=== PATIENT | female | born 1960 | race Caucasian/White ===

== ENCOUNTER 2022-05-03 08:16 | Emergency (ER) | payer OTHER, SELFPAY ==
[2022-05-03 08:25] VITALS: BP 148/79; PULSE 65; RESP 16; TEMP 36.3; O2SAT 100
--- NOTE | 2022-05-03 08:26 | ED.GENADULT ---
HPI - General Adult General Chief complaint: Upper Respiratory Infection Stated complaint: Dizziness Time Seen by Provider: 05/03/22 08:41 Source: patient Mode of arrival: ambulatory Limitations: no limitations History of Present Illness HPI narrative: 61-year-old female presents with concern for dizziness. Reports sudden onset of dizziness overnight. Reports it feels like there are pins and needles poking her head. She denies a room spinning feeling. She reports feeling like she has been ?drawn 5 days?. She denies any substance intoxication. She reports she has had a headache throughout the weekend that has abdomen flowed. She denies thunderclap headache. She denies weakness in any extremity. She drove herself to work today, her boss drove her here. She denies runny nose, stuffy nose, ear fullness, earache. She denies chest pain or shortness of breath MD complaint: Dizziness Related Data Home Medications Medication Instructions Recorded Confirmed No Home Medications 05/03/22 05/03/22 Allergies Allergy/AdvReac Type Severity Reaction Status Date / Time codeine AdvReac Intermediate Gastrointestinal Verified 05/03/22 08:34 Upset Review of Systems Review of Systems: CONSTITUTIONAL: Denies malaise, chills, sweats, or fever. EYES: Denies visual changes ENT: Denies rhinorrhea, congestion, sinus pain, otalgia or sore throat. CARDIOVASCULAR: Denies chest pain, palpitations, or edema. RESPIRATORY: Denies cough or dyspnea. GASTROINTESTINAL: Denies abdominal pain, nausea, vomiting MUSCULOSKELETAL: Reports chronic left shoulder pain NEUROLOGIC: Denies numbness, weakness. Reports headache and dizziness All systems reviewed & are unremarkable except as noted in HPI and below FORMERLY [facility], 1928[facility]1983 Comments At time of signature, agree with nursing past medical, surgical, social and family history. There is no relevant family history pertinent to the presenting complaint Exam Narrative: GENERAL: Nontoxic-appearing and in no acute distress. HEAD: Normocephalic, atraumatic. EYES: PERRLA, sclera clear, and EOMI. No nystagmus. ENT: Nares clear, turbinates pink, no rhinorrhea or epistaxis. Mucous membranes moist. TM pearly aj with dull light reflex bilaterally; no tragal tenderness. Oropharynx without erythema or lesions. Tonsils not enlarged and without exudate. NECK: Supple. No lymphadenopathy. No jugular venous distension, thyromegaly, or carotid bruits. Carotids were easily palpable bilaterally. CHEST: No respiratory distress. Clear to auscultation. No bony deformities, no asymmetry. Speaks in full sentences. HEART: Regular rate and rhythm. No murmur heard. Normal peripheral pulses. EXTREMITIES: Normal range of motion. No edema. Normal strength and sensation. SKIN: Warm, dry, no visible rash. NEURO: Alert and oriented x3. No focal deficits. Cranial nerves II through XII grossly intact. Artem-Hallpike test negative bilaterally PSYCH: Normal mood and affect Course Course Emergency Course: Patient is aware of, understands and agrees to be transferred to the emergency room. Patient agrees to proceed directly to the emergency department. Portions of this record may have been created with voice recognition software Level of Care: Express Care Visit Vital Signs Vital signs: Reviewed. Transfer Transfered to: Other ([facility]) Transportation: Other (Private vehicle) Transfer rationale: Dizziness Accepting physician: Franky Medical Decision Making MDM Narrative Medical decision making narrative: Exam findings and HPI warrant further evaluation emergency department. Critical Care Time Critical Care Time Critical Care Time: No Discharge Plan Discharge Clinical Impression: Dizziness Patient Disposition: Acute Care Hospital Condition: Stable Prescriptions: No Action No Home Medications Follow-up/Referrals: Antwon,Santiago Gant MD [Primary Care Provider] - Time of Dispositio
== END 2022-05-03 08:55 | disposition home or self-care (01) ==
PROVIDERS: Emergency Provider Nurse Practitioner; PCP Pediatrics
DX: R42 Dizziness and giddiness (principal)
CPT/HCPCS: 99202; G0463

== ENCOUNTER 2024-06-16 16:12 | Emergency (ER) | payer OTHER, SELFPAY ==
--- NOTE | 2024-06-16 16:13 | ED_ITS ---
HPI - Female Genitourinary General Chief complaint: Urogenital-Female Stated complaint: uti Time Seen by Provider: 06/16/24 16:13 Source: patient Mode of arrival: ambulatory Limitations: no limitations History of Present Illness HPI Narrative: Silvana is a 63-year-old female patient presenting to the clinic today with complaints of possible UTI. She reports she has had symptoms for 1 day. He reports burning, frequency, and urgency with urination. Also reporting some lower abdominal discomfort and low back pain. Denies any fevers, chills, body aches. Last bowel movement was approximately 3 days ago. Patient states that this is normal for her. Related Data Home Medications ?Medication ?Instructions ?Recorded ?Confirmed ?Last Taken ?Type celecoxib 200 mg capsule mg 06/16/24 Unknown History omeprazole 40 mg capsule,delayed mg 06/16/24 Unknown History release Allergies Allergy/AdvReac Type Severity Reaction Status Date / Time codeine AdvReac Intermediate Gastrointestinal Verified 06/16/24 16:28 Upset Review of Systems Review of Systems: Pertinent positives per HPI. Patient denies any fever, chills, rash, headache, visual changes, dizziness, cough, runny nose, sore throat, shortness of breath, chest pain, palpitations, nausea, vomiting, diarrhea, constipation PMFSH Comments At the time of my signature, I reviewed and agree with the nursing past medical, surgical, social, and family history. There is no relevant family history pertinent to the patient complaint. Exam Narrative: General: Well-developed, well nourished, in no apparent distress. Head: Normocephalic, atraumatic. Cardio: Regular rate and rhythm, s1 and s2 normal, no murmur appreciated. Resp: Clear to auscultation bilaterally, no rhonchi, rales, wheezing or rubs. Abdomen: Soft, pliable, bowel sounds present in all quadrants, mild suprapubic tender to palpation, no organomegly, no CVAT tenderness. Course Course Emergency Course: Portions of this record may have been created with voice recognition software. Level of Care: Express Care Visit Vital Signs Vital signs: Vital Signs Temperature 36.4 C L 06/16/24 16:21 Pulse Rate 61 06/16/24 16:21 Respiratory Rate 18 06/16/24 16:21 Blood Pressure 140/75 06/16/24 16:21 Pulse Oximetry 100 06/16/24 16:21 Oxygen Delivery Room Air 06/16/24 16:21 Temperature 36.4 C L 06/16/24 16:21 Pulse Rate 61 06/16/24 16:21 Respiratory Rate 18 06/16/24 16:21 Blood Pressure 140/75 06/16/24 16:21 Pulse Oximetry 100 06/16/24 16:21 Oxygen Delivery Room Air 06/16/24 16:21 Vital signs reviewed MDM - Female Genitourinary MDM Narrative Medical decision making narrative: At the time of visit patient is resting comfortably on the exam table. Patient appears to be nontoxic. Labs: Urinalysis shows trace of leukocytes. We will send urine for culture. Plan: Patient has UTI symptoms. Will send in prescription for 3 day course of Bactrim. Will send urine for culture. Supportive measures were discussed with the patient and they voiced understanding discharge instructions and agrees to treatment plan. Return precautions reviewed Differential Diagnosis Differential diagnosis: Likely urinary tract infection and cystitis Discharge Plan Discharge Clinical Impression: Urinary tract infection Qualifiers: Urinary tract infection type: acute cystitis Hematuria presence: without hematuria Qualified Code(s): N30.00 - Acute cystitis without hematuria Patient Disposition: Home Condition: Stable Instructions: Antibiotic Form, Urinary Tract Infection in Older Adults (ED) Additional Instructions: UA shows trace of leukocytes. No blood or protein. Will place on 3 day course of Bactrim May take azo for symptoms Increase fiber in your diet Increase fluids and stay well hydrated Wipe front to back. May use wet wipes. Avoid tub baths If sexually active- pee before and after intercourse. Wear cotton panties Avoid tight clothing up against the genitals Follow up with your PCP in 1 week if symptoms persist. Patient Language: Indonesian Prescriptions: New sulfamethoxazole-trimethoprim [Bactrim DS] 800-160 mg tablet 1 tablet PO Q12H 3 Days Qty: 6 0RF No Action celecoxib 200 mg capsule omeprazole 40 mg capsule,delayed release(/EC) Follow-up/Referrals: Wes Kapoor ARRT [Primary Care Provider] - Time of Disposition: 16:40 Quality NIHSS Nursing Documentation ED NIHSS nursing documentation: reviewed/agree
--- OUTSIDE RECORDS SUMMARY | 2024-06-16 16:16 | XMS_ITS | Clinical Summary ---
Author Organization [facility] Address [address] [place] [address] Care Team Providers Care Preliminary School Psychologist Name Role Phone Santiago Kapoor MD Primary Care Provide r Allergies Active Allergy Reactions Criticality Noted Date Comments Amitriptyline Fatigue Low 02/28/2018 Codeine Chest pressure Medium 07/04/2017 Gabapentin Other (see comment) Low 11/29/2023 Confusion Naproxen Nausea Only Low 06/08/2017 Medications celecoxib (CELEBREX) 200 MG capsuleIndicatio ns:Pain in both hands Take 1 capsule (200 mg total) by mouth 2 (two) times daily. 60 capsule 5 11/02/2023 Active omeprazole (PRILOSEC) 40 MG capsuleIndicatio ns:Gastroesophag eal reflux disease without esophagitis Take 1 capsule (40 mg total) by mouth daily. 30 capsule 5 11/02/2023 Active Active Problems Problem Noted Date Diagnosed Date Cervical radiculopathy 11/21/2022 Pain in both hands 11/21/2022 Chronic midline low back pain with left-sided sc iatica 11/21/2022 Mammogram declined 08/30/2022 Immunization counseling 08/30/2022 Arthritis of both hands 02/18/2021 Chronic pain of both shoulders 02/18/2021 Pure hypercholesterolemia 11/26/2019 History of colon polyps 11/26/2019 Diverticulosis 11/26/2019 IBS (irritable bowel syndrome) 08/13/2017 Hyperkeratosis 11/24/2015 Deformity of metatarsal 01/13/2015 Hypertrophic condition of skin 01/13/2015 Foot callus 01/06/2015 Myalgia and myositis 07/02/2014 Overview (02/26/2018): Myalgia and myositis, unspecified Cervicalgia 06/20/2013 Overview (02/26/2018): Cervicalgia Neuralgia, neuritis or radiculitis 06/20/2013 Overview (02/26/2018): Neuralgia, neuritis, and radiculitis, unspecified Pain in joint, hand 06/20/2013 Overview (02/26/2018): Pain in joint involving hand Sciatica 06/20/2013 Overview (02/26/2018): Sciatia Resolved Problems Problem Noted Date Diagnosed Date Resolved Date Gastritis 08/13/2017 08/30/2022 Plantar wart 12/18/2014 08/30/2022 Overview (02/26/2018): Plantar wart Calculus of gallbladder and bile duct with acute on chronic cholecystitis without obstruction 03/13/2012 08/30/2022 Chest pain 03/11/2012 08/30/2022 Overview (02/26/2018): Unspecified chest pain Encounters Date Type Department Care Team Description 04/18/2024 Scan HEALTH INFO [facility] Scanned, [facility] 04/18/2024 Orders Only [facility] [address] [place] [id number] Santiago Kapoor MD from Last 3 Months Immunizations Immunization Administration Dates Next Due Fluzone 6 Months+ Quad (0.5 mL Prefilled Syringe) 11/19/2019 Influenza (Generic) 11/10/2017,11/08/2015,2014 Influenza Adult (Generic) 11/20/2014 Pneumococcal (Prevnar 13) 11/19/2019 Tdap (Adacel) 05/29/2021 Tdap (Generic) 10/29/2007 Tdap (Historical Only-select from magnify glass) 11/19/2019 Family History Medical History Relation Comments Hypertension Father Hypertension Mother Relation Status Comments Father Alive Mother Social History Tobacco Use Types Packs/Day Years Used Date Smoking Tobacco: Former Cigarettes Smokeless Tobacco: Never Tobacco Cessation:Counseling Given: Not Answered Alcohol Use Standard Drinks/Week Comments Yes 0 (1 standard drink = 0.6 oz pur e alcohol) on occasion AUDIT-C Answer Date Recorded Frequency of Alcohol Consumption 4 or more times a week 03/28/2018 Average Number of Drinks Not on file 019 Frequency of Binge Drinking Not on file 03/09 PHQ-2 Answer Date Recorded Patient Health Questionnaire-2 Score 0 11/22/2023 Comments No Sex and Gender Information Value Date Recorded Sex Assigned at Female 09/27/2022 4:07 PM CDT Legal Sex Female 4:47 PM CDT Gender Identity Female 09/27/2022 4:07 PM CDT Sexual Orientation Straight 09/27/2022 4: 07 PM CDT Last Filed Vital Signs Vital Sign Reading Time Taken Comments Blood Pressure 134/72 03/10/2024 1:05 PM ASSOCIATE DIRECTOR OF DEVELOPMENT Pulse 66 03/10/2024 12:51 PM ASSOCIATE DIRECTOR OF DEVELOPMENT Temperature 36.6 C (97.8 F) 03/10/2024 12:51 PM ASSOCIATE DIRECTOR OF DEVELOPMENT Respiratory Rate 18 03/10/2024 12:51 PM ASSOCIATE DIRECTOR OF DEVELOPMENT Oxygen Saturation 98% 03/10/2024 12:51 PM ASSOCIATE DIRECTOR OF DEVELOPMENT Inhaled Oxygen Concentration - - Weight 83.2 kg (183 lb 8 oz) 03/10/2024 12:51 PM ASSOCIATE DIRECTOR OF DEVELOPMENT Height 165.1 cm (5' 5 ) 03/10/2024 12:51 PM ASSOCIATE DIRECTOR OF DEVELOPMENT Body Mass Index 30.54 03/10/2024 12:51 PM ASSOCIATE DIRECTOR OF DEVELOPMENT Plan of Treatment Health Maintenance Due Date Last Done Comments Cervical Cancer Screening Pa p Smear (Age 30 to 64) Every 3 Years 1962 Hepatitis C 1980 Zoster Vaccines (1 of 2) 2012 Mammogram Screening 03/01/2020 03/01/2018 Pneumococcal Vaccine: 50+ Years (2 of 2 - PPSV23) 11/18/2020 11/19/2019 Cervical Cancer Screening Pa p with HPV Testing (Age 30 to 64) Every 5 Years 02/08/2022 02/08/2017 Cervical Cancer Screening with HPV 02/08/2022 COVID-19 Vaccine (2023-2 5 season) 2023 PHQ-2 (Physician Bland) 02/06/2024 11/22/2023 Colorectal Cancer Screening Colonoscopy (10 Years) 08/06/2024 Postponed from (Per Provider Recommendation) Annual Physical 11/21/2024 11/22/2023, 08/22/2022, 11/19/2019 DTaP, Tdap and Td Vaccines ( 4 - Td or Tdap) 05/30/2031 05/29/2021, 11/19/2019, 10/29/2007 RSV Immunization or 60+ Years (1 - 1-dose 75+ series) 2037 Meningococcal B Vaccine Aged Out No l onger eligible based on patient's age to complete this topic Meningococcal Vaccine Aged Out No taiwo aleena eligible based on patient's age to complete this topic RSV Immunizations Under 20 Months Aged Out No longer eligible b ased on patient's age to complete this topic Procedures Procedure Name Priority Date/Time Associated Diagnosis Comments MAMMOGRAM GENERIC (SCAN ORDER) Routine 03/01/2018 HPV MRNA E6/E7 Routine 02/08/2017 5:20 PM ASSOCIATE DIRECTOR OF DEVELOPMENT from Last 3 Months or Most Recently Relevant to Health Maintenance Results * MAMMOGRAM (03/01/2018) Anatomical Region Laterality Modality Other us Documents Scanned SCANNING Edited Result - Final * HPV MRNA E6/E7 (02/08/2017 5:20 PM ASSOCIATE DIRECTOR OF DEVELOPMENT) HPV MRNA E6/E7 Not Detected NOT DETECTED 02/14/2017 12:31 AM ASSOCIATE DIRECTOR OF DEVELOPMENT xAd JOSS VILLALTA Comment: This test was performed using the APTIMA(R) HPV Assay([employer]This assay detects E6/E7 viral messenger RNA (mRNA)from 14 high-risk HPV types (16,18,31,33,35,39,45,51,52,56,58,59,66,68).For additional information please refer to:http://education.tapviva/faq/AGF367y8(This link is being provided for informational/educational purposes only.)Test Performed by [facility],[address] [place], [place] [address]Lutthfkmatt Amanda M.D., Ph.D., Director of [phone], [facility] [id number] FLUID SPECIMEN / Unknown 02/08/2017 5:20 PM ASSOCIATE DIRECTOR OF DEVELOPMENT 02/08/2017 5:20 PM ASSOCIATE DIRECTOR OF DEVELOPMENT us Generic Conversion Md [facility]ER PATHOLOGY/CYTOLOGY KLAUDIA HANNA Final Result Performing Organization Address City[facility]/ZIP Co de Phone Number [facility] [address] [address], [place] [phone] from Last 3 Months or Most Recently Relevant to Health Maintenance Insurance [facility] Care Teams Preliminary School Psychologist Relationship Specialty [place] [address] [place] [address] PCP - General INTERNAL MEDICINE 02/25/18
--- OUTSIDE RECORDS SUMMARY | 2024-06-16 16:16 | XMS_ITS | Encounter Summary ---
Author Organization [facility] Address [address] [place] [address] Care Team Providers Care Automotive Artist Name Role Phone Santiago Kapoor MD Primary Care Provide r Encounter Details Date Type Department Care Team (Late st Contact Info) Description 02/12/2023 [facility] Message Counts include 234 beds at the [facility] Family & Internal Medicine [address] [phone] [facility] Provider Screening Social History Tobacco Use Types Packs/Day Years Used Date Smoking Tobacco: Former Smokeless Tobacco: Never Alcohol Use Standard Drinks/Week Comments Not Currently 0 (1 standard drink = 0.6 oz pur e alcohol) on occasion AUDIT-C Answer Date Recorded Frequency of Alcohol Consumption 4 or more times a week 03/28/2018 Average Number of Drinks Not on file 019 Frequency of Binge Drinking Not on file 03/09 PHQ-2 Answer Date Recorded Patient Health Questionnaire-2 Score 0 08/22/2022 Comments No Sex and Gender Information Value Date Recorded Sex Assigned at Female 09/27/2022 4:07 PM CDT Legal Sex Female 4:47 PM CDT Gender Identity Female 09/27/2022 4:07 PM CDT Sexual Orientation Straight 09/27/2022 4: 07 PM CDT documented as of this encounter Plan of Treatment Not on file documented as of this encounter Visit Diagnoses Not on filedocumented in this encounter Additional Health Concerns Assessment Noted Time PHQ-9 Depression Total Score: 0 02/11/19 3:08 PM MAXILLOFACIAL PROSTHODONTIST documented as of this encounter Care Teams Automotive Artist Relationship Specialty [place] [address] [place] [phone] PCP - General INTERNAL MEDICINE 02/25/18 documented as of this encounter
--- OUTSIDE RECORDS SUMMARY | 2024-06-16 16:16 | XMS_ITS | Encounter Summary ---
Author Organization [facility] Address [facility] [place] [address] Care Team Providers Care Manager Talent Acquisition Name Role Phone Santiago Kapoor MD Primary Care Provide r Encounter Details Date Type Department Care Team (Late st Contact Info) Description 03/08/2011 Abstract [facility] Conversion , Generic Conversion, Social History Tobacco Use Types Packs/Day Years Used Date Smoking Tobacco: Never Assessed Comments Unknown Sex and Gender Information Value Date Recorded Sex Assigned at Female 09/27/2022 4:07 PM CDT Legal Sex Female 4:47 PM CDT Gender Identity Female 09/27/2022 4:07 PM CDT Sexual Orientation Straight 09/27/2022 4: 07 PM CDT documented as of this encounter Plan of Treatment Not on file documented as of this encounter Visit Diagnoses Not on filedocumented in this encounter Care Teams Manager Talent Acquisition Relationship Specialty [place] [address] [place] [id number] PCP - General INTERNAL MEDICINE 02/25/18 documented as of this encounter
[2024-06-16 16:21] VITALS: BP 140/75; PULSE 61; RESP 18; TEMP 36.4; O2SAT 100
[2024-06-16 17:31] LABS: EDUAAPPEAR Clear; EDUABILI Negative (Negative); EDUABLOOD Negative (Negative); EDUACOLOR1 Yellow; EDUAGLUCOSE Negative (Negative); EDUAKETONE Negative (Negative); EDUALEUKO Trace (Negative); EDUANITRATE Negative (Negative); EDUAPH 6.5; EDUAPROTEIN Negative (Negative); EDUAUROBILI 0.2
== END 2024-06-16 16:42 | disposition home or self-care (01) ==
PROVIDERS: Emergency Provider Nurse Practitioner Family
DX: N30.00 Acute cystitis without hematuria (principal); K21.9 Gastro-esophageal reflux disease without esophagitis; M19.90 Unspecified osteoarthritis, unspecified site
CPT/HCPCS: 81003; 87086; 87186; 99213; G0463